=== PATIENT | male | born 1990 | race Hispanic/Latino ===

== ENCOUNTER 2017-09-09 14:15 | Emergency (ER) | payer OTHER ==
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
[2017-09-09] MEDS ORDERED: NACL 0.9% 500 ML IR ONE (16:26)
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
[2017-09-09 16:54] VITALS: BP 142/88
== END 2017-09-09 16:53 | disposition home or self-care (01) ==
LOC: ED 14:15
DX: S60.812A Abrasion of left wrist, initial encounter (principal); S60.811A Abrasion of right wrist, initial encounter; S90.512A Abrasion, left ankle, initial encounter; S70.211A Abrasion, right hip, initial encounter; S30.811A Abrasion of abdominal wall, initial encounter; R51 Headache; M54.2 Cervicalgia; V89.2XXA Person injured in unspecified motor-vehicle accident, traffic, initial encounter; Y93.89 Activity, other specified; Y92.89 Other specified places as the place of occurrence of the external cause; Y99.8 Other external cause status
CPT/HCPCS: 70450; 71010; 72125; 99284